=== PATIENT | male | born 1965 | race Caucasian/White ===

== ENCOUNTER 2016-09-28 16:54 | Emergency (ER) | payer SELFPAY ==
[~2016-09-28] VITALS: Ht 175.3 cm; Wt 78.2 kg
[~2016-09-28 16:54] MED LIST: AMOXICILLIN 50500 MG PO; BRILINTA90 MG PO; CLEOCIN HC150 MG/CAP PO; FLEXERIL 1010 MG/TAB PO; IBUPROFEN 200200 MG PO; INDOCIN50 MG PO; LORTAB 5/500 501 TAB PO; MOTRIN 800800 MG/TAB PO; NAPROSYN500 MG PO; NO HOME MEDICATIONS; NORCO 325 MG-51 TAB PO; NORVASC 5MG5 MG/TAB PO; PEN-VEE K500 MG PO; PERCOCET 325 MG1 TA2 PO; TYLENOL 325MG325 MG PO; TYLENOL W/COD1 UDTAB PO
[2016-09-28 17:09] VITALS: TEMP 98.5
[2016-09-28 17:41] LABS: BASO # 0.1 (0.0-0.2); BASO % 0.8 % (0.0-2.0); EOS # 0.1 (0.0-0.7); EOS % 0.5 % (0-4.0); GRAN % 74.1 % (42.2-75.2); HEMATOCRIT 45.6 % (42.0-52.0); HEMOGLOBIN 15.6 g/dl (13.5-18.0); LYMPH # 1.6 (1.2-3.4); LYMPH % 16.8 % (20.0-51.0); MEAN CELL VOLUME 98 fl (80.0-100.0); MEAN CORPUSCULAR HEMOGLOBIN 34 pg (27.0-31.0); MEAN CORPUSCULAR HGB CONC 34 g/dl (33.0-37.0); MEAN PLATELET VOLUME 8.7 fl (7.4-10.4); MONO # 0.7 (0.1-0.6); MONO % 7.6 % (1.7-9.3); PLATELET COUNT 274 K/mm3 (130-400); RED BLOOD COUNT 4.66 M/mm3 (4.20-5.60); REDCELL DISTRIBUTION WIDTH-CV 13.2 % (11.5-14.5); WHITE BLOOD COUNT 9.5 K/mm3 (4.8-10.8)
[2016-09-28 17:51] LABS: ADJUSTED CALCIUM 8.7 mg/dL (8.4-10.2); ALBUMIN 4.4 gm/dL (3.5-5.0); BILIRUBIN,TOTAL 0.8 mg/dL (0.0-1.0); CREATININE, serum 0.91 mg/dL (0.66-1.25); POTASSIUM 3.7 mmol/L (3.4-5.0); TOTAL PROTEIN 8.1 gm/dL (6.4-8.2)
[2016-09-29 00:10] VITALS: BP 145/98; PULSE 95
[2016-09-30] MEDS ORDERED: PRINIVIL20 MG PO (15:11)
== END 2016-09-29 00:10 | disposition home or self-care (01) ==
LOC: COL.ER 16:54
PROVIDERS: Emergency Medicine
DX: F10.120 Alcohol abuse with intoxication, uncomplicated (principal); Y90.8 Blood alcohol level of 240 mg/100 ml or more
CPT/HCPCS: J2765; J3411; J3475; J7030

== ENCOUNTER 2016-09-29 21:22 | Emergency (ER) | payer SELFPAY ==
[~2016-09-29] VITALS: Ht 175.3 cm; Wt 78.2 kg
[2016-09-29 21:39] VITALS: TEMP 97
[2016-09-29 21:46] LABS: BASO # 0.1 (0.0-0.2); BASO % 1.2 % (0.0-2.0); EOS # 0.1 (0.0-0.7); EOS % 0.9 % (0-4.0); GRAN # 4.1 (1.4-6.5); GRAN % 64.5 % (42.2-75.2); HEMATOCRIT 44.8 % (42.0-52.0); HEMOGLOBIN 15.4 g/dl (13.5-18.0); LYMPH # 1.6 (1.2-3.4); LYMPH % 24.3 % (20.0-51.0); MEAN CELL VOLUME 99 fl (80.0-100.0); MEAN CORPUSCULAR HEMOGLOBIN 34 pg (27.0-31.0); MEAN CORPUSCULAR HGB CONC 34 g/dl (33.0-37.0); MEAN PLATELET VOLUME 8.6 fl (7.4-10.4); MONO # 0.6 (0.1-0.6); MONO % 8.9 % (1.7-9.3); PLATELET COUNT 238 K/mm3 (130-400); RED BLOOD COUNT 4.53 M/mm3 (4.20-5.60); REDCELL DISTRIBUTION WIDTH-CV 13.1 % (11.5-14.5); WHITE BLOOD COUNT 6.4 K/mm3 (4.8-10.8)
[2016-09-29 21:56] LABS: ADJUSTED CALCIUM 8.7 mg/dL (8.4-10.2); ALANINE AMINOTRANSFERASE 25 U/L (21-72); ALBUMIN 4.4 gm/dL (3.5-5.0); ALKALINE PHOSPHATASE 95 U/L (50-136); ANION GAP 16 mmol/L (7-16); BILIRUBIN,TOTAL 0.6 mg/dL (0.0-1.0); BLOOD UREA NITROGEN 7 mg/dL (9-20); CARBON DIOXIDE 29 mmol/L (22-30); CHLORIDE 103 mmol/L (98-107); CREATININE, serum 0.98 mg/dL (0.66-1.25); GLUCOSE 95 mg/dL (74-106); POTASSIUM 4.2 mmol/L (3.4-5.0); SODIUM 147 mmol/L (137-145); TOTAL PROTEIN 7.8 gm/dL (6.4-8.2)
[2016-09-29 21:58] LABS: ACETAMINOPHEN < 10 ug/mL (10-30); SALICYLATE < 1.0 mg/dL
[2016-09-29 22:02] LABS: AMPHETAMINE URINE NEGATIVE; BARBITURATES URINE NEGATIVE; BENZODIAZEPINES URINE POSITIVE; BUPRENORPHINE URINE NEGATIVE; METHADONE URINE NEGATIVE; OPIATES URINE NEGATIVE; OXYCODONE URINE NEGATIVE; PHENCYCLIDINE URINE NEGATIVE; PROPOXYPHENE URINE NEGATIVE; THC CANNABINOIDS URINE NEGATIVE
[2016-09-30 00:34] LABS: TROPONIN-I < 0.012 ng/mL (0.000-0.034)
[2016-09-30 15:06] VITALS: BP 166/101; PULSE 80
[2016-09-30] MEDS ORDERED: PRINIVIL20 MG PO (15:11)
== END 2016-09-30 15:28 | disposition home or self-care (01) ==
LOC: COL.ER 21:22
PROVIDERS: Emergency Medicine
DX: R45.851 Suicidal ideations (principal); F10.120 Alcohol abuse with intoxication, uncomplicated; Y90.9 Presence of alcohol in blood, level not specified; F32.2 Major depressive disorder, single episode, severe without psychotic features; M10.072 Idiopathic gout, left ankle and foot; M10.071 Idiopathic gout, right ankle and foot; R07.9 Chest pain, unspecified
CPT/HCPCS: J1885

== ENCOUNTER 2023-11-26 15:40 | Emergency (ER) | payer BC ==
[~2023-11-26] VITALS: Ht 175.3 cm; Wt 82.3 kg
[~2023-11-26 15:40] MED LIST changes: +PRINIVIL20 MG PO
[2023-11-26 15:55] VITALS: TEMP 98.7
[2023-11-26] MEDS ORDERED: predniSONE 20 MG TAB PO ONE (16:30)
[2023-11-26] MEDS ORDERED: Gabapentin 300 MG CAP PO ONE (16:30)
[2023-11-26 17:10] LABS: BASO % 0.8 % (0.0-2.0); EOS # 0.2 K/mm3 (0.0-0.7); EOS % 3.1 % (0.0-4.0); GRAN # 3.2 K/mm3 (1.4-6.5); GRAN % 63.1 % (42.2-75.2); HEMATOCRIT 32.1 % (42.0-52.0); LYMPH # 1.3 K/mm3 (1.2-3.4); LYMPH % 25.7 % (20.0-51.0); MEAN CELL VOLUME 96 fl (80.0-100.0); MEAN CORPUSCULAR HEMOGLOBIN 33 pg (27-31); MEAN CORPUSCULAR HGB CONC 34 g/dl (33.0-37.0); MEAN PLATELET VOLUME 8.9 fl (7.4-10.4); MONO # 0.4 K/mm3 (0.1-0.6); MONO % 7.1 % (1.7-9.3); PLATELET COUNT 188 K/mm3 (130-400); RED BLOOD COUNT 3.35 M/mm3 (4.20-5.60); REDCELL DISTRIBUTION WIDTH-CV 15.3 % (11.5-14.5)
[2023-11-26 17:17] LABS: ERYTHROCYTE SEDIMENTATION RATE 7 mm/hr (0-30)
[2023-11-26 17:28] LABS: ALBUMIN 3.6 g/dL (3.4-4.8); BILIRUBIN,TOTAL 0.5 mg/dL (0.2-1.2); CALCIUM 8.5 mg/dL (8.4-10.2); CREATININE, serum 0.79 mg/dL (0.72-1.25); POTASSIUM 3.3 mEq/L (3.5-4.5); TOTAL PROTEIN 6.2 g/dl (6.2-8.1)
[2023-11-26 18:14] VITALS: BP 158/92; PULSE 80
[2023-11-27] MEDS ORDERED: PREDNISONE50 MG PO (10:08)
== END 2023-11-26 18:15 | disposition home or self-care (01) ==
LOC: COL.ER 15:40
PROVIDERS: Family Medicine
DX: G89.29 Other chronic pain (principal); M79.604 Pain in right leg; M79.605 Pain in left leg; M79.672 Pain in left foot; M79.671 Pain in right foot; Z87.39 Personal history of other diseases of the musculoskeletal system and connective tissue
CPT/HCPCS: J7512

== ENCOUNTER 2024-01-21 15:20 | Emergency (ER) | payer BC ==
[~2024-01-21] VITALS: Ht 175.3 cm; Wt 81.8 kg
[~2024-01-21 15:20] MED LIST changes: +PREDNISONE50 MG PO
[2024-01-21 15:24] VITALS: TEMP 97.7
[2024-01-21] MEDS ORDERED: NS 500 ML IV ONE (16:00)
[2024-01-21 16:11] LABS: BASO % 0.5 % (0.0-2.0); EOS # 0.1 K/mm3 (0.0-0.7); EOS % 0.9 % (0.0-4.0); GRAN # 5.8 K/mm3 (1.4-6.5); GRAN % 70.6 % (42.2-75.2); HEMOGLOBIN 11.9 g/dl (13.5-18.0); LYMPH # 1.7 K/mm3 (1.2-3.4); LYMPH % 21.2 % (20.0-51.0); MEAN CELL VOLUME 93 fl (80.0-100.0); MEAN CORPUSCULAR HEMOGLOBIN 32 pg (27-31); MEAN CORPUSCULAR HGB CONC 35 g/dl (33.0-37.0); MEAN PLATELET VOLUME 9.3 fl (7.4-10.4); MONO # 0.5 K/mm3 (0.1-0.6); MONO % 6.6 % (1.7-9.3); PLATELET COUNT 151 K/mm3 (130-400); RED BLOOD COUNT 3.73 M/mm3 (4.20-5.60)
[2024-01-21 16:13] LABS: HEMATOCRIT 34.5 % (42.0-52.0)
[2024-01-21 16:29] LABS: ALBUMIN 3.7 g/dL (3.4-4.8); BILIRUBIN,TOTAL 0.6 mg/dL (0.2-1.2); C-REACTIVE PROTEIN 0.13 mg/dL (0.00-0.50); CALCIUM 8.5 mg/dL (8.4-10.2); CREATININE, serum 0.84 mg/dL (0.72-1.25); TOTAL PROTEIN 5.9 g/dl (6.2-8.1)
[2024-01-21] MEDS ORDERED: Acetaminophen 500 MG TAB PO ONE (18:30)
[2024-01-21 18:54] VITALS: BP 138/90; PULSE 59
== END 2024-01-21 18:58 | disposition home or self-care (01) ==
LOC: COL.ER 15:20
PROVIDERS: Emergency Medicine
DX: R51.9 Headache, unspecified (principal); F17.210 Nicotine dependence, cigarettes, uncomplicated; F17.290 Nicotine dependence, other tobacco product, uncomplicated
CPT/HCPCS: J7040

== ENCOUNTER 2024-03-10 17:03 | Inpatient (IN) | payer MEDICARE ==
[~2024-03-10] VITALS: Ht 175.3 cm; Wt 83.5 kg
[2024-03-10] MEDS ORDERED: Pantoprazole 40 MG in NS 10 ML IV ONE (18:30)
[2024-03-10] MEDS ORDERED: Folic Acid 1 MG,Thiamine 200 MG in NS 1,000 ML IV ONE ×2 (18:30→20:45)
[2024-03-10 18:46] LABS: BASO # 0.1 K/mm3 (0.0-0.2); BASO % 0.8 % (0.0-2.0); EOS # 0.1 K/mm3 (0.0-0.7); EOS % 1.5 % (0.0-4.0); GRAN # 3.4 K/mm3 (1.4-6.5); GRAN % 56.1 % (42.2-75.2); HEMATOCRIT 41.7 % (42.0-52.0); HEMOGLOBIN 14.1 g/dl (13.5-18.0); LYMPH # 2.1 K/mm3 (1.2-3.4); LYMPH % 34.4 % (20.0-51.0); MEAN CELL VOLUME 95 fl (80.0-100.0); MEAN CORPUSCULAR HEMOGLOBIN 32 pg (27-31); MEAN CORPUSCULAR HGB CONC 34 g/dl (33.0-37.0); MEAN PLATELET VOLUME 8.5 fl (7.4-10.4); MONO # 0.4 K/mm3 (0.1-0.6); PLATELET COUNT 287 K/mm3 (130-400); RED BLOOD COUNT 4.37 M/mm3 (4.20-5.60); REDCELL DISTRIBUTION WIDTH-CV 14.3 % (11.5-14.5)
[2024-03-10 19:04] LABS: BILIRUBIN,TOTAL 0.2 mg/dL (0.2-1.2); CALCIUM 9.1 mg/dL (8.4-10.2); CREATININE, serum 1.06 mg/dL (0.72-1.25); POTASSIUM 3.8 mEq/L (3.5-4.5); TOTAL PROTEIN 7.5 g/dl (6.2-8.1)
[2024-03-10] MEDS ORDERED: LORazepam 2 MG/ML 1 ML VIAL IV PRN (20:45)
[2024-03-10] MEDS ORDERED: Ondansetron 4 MG/2 ML VIAL IV PRN (20:45)
[2024-03-10] MEDS ORDERED: Magnesium Sulfate 4% 50 ML IV ONE (20:45)
[2024-03-10] MEDS ORDERED: Mag/Al Hydrox/Simeth Susp 30 ML CUP PO PRN (20:45)
[2024-03-10] MEDS ORDERED: Acetaminophen 325 MG TAB PO PRN (20:45)
[2024-03-10] MEDS ORDERED: Atorvastatin 40 MG TAB PO SCH (21:25)
[2024-03-10] MEDS ORDERED: Gabapentin 300 MG CAP PO SCH (21:25)
[2024-03-10] MEDS ORDERED: LR 1,000 ML IV SCH (21:30)
[2024-03-10] MEDS ORDERED: Nicotine 21 MG DAILY PATCH TD SCH (21:45)
[2024-03-10 23:29] VITALS: BP 167/107; PULSE 74; TEMP 97.5
[2024-03-11] VITALS (156 sets, daily range): BP systolic 137–162; BP diastolic 70–96; PULSE 58–66; TEMP 97.8–98.4; O2SAT 89–98
[2024-03-11 00:45] LABS: COLLECTION METHOD CLEAN CATCH
[2024-03-11 00:56] LABS: URINE APPEARANCE CLEAR (CLEAR/HAZY); URINE BLOOD NEGATIVE (NEGATIVE); URINE COLOR YELLOW (YELLOW); URINE GLUCOSE NEGATIVE (NEGATIVE); URINE KETONE NEGATIVE (NEGATIVE); URINE NITRATE NEGATIVE (NEGATIVE); URINE PROTEIN(semi-quant) 1+ (NEGATIVE)
[2024-03-11 01:05] LABS: TRICYCLIC ANTIDEPRESS URINE NEGATIVE (NEGATIVE)
[2024-03-11] MEDS ORDERED: KEPPRA 500MG500 MG PO (01:48)
[2024-03-11] MEDS ORDERED: ZYLOPRIM 100MG100 MG PO (01:49)
[2024-03-11] MEDS ORDERED: LIPITOR 40MG TA40 MG PO (01:50)
[2024-03-11] MEDS ORDERED: CYMBALTA 60MG60 MG PO (01:51)
[2024-03-11] MEDS ORDERED: NEURONTIN300 MG/CAP PO (01:53)
[2024-03-11 04:10] LABS: BASO % 0.9 % (0.0-2.0); EOS # 0.1 K/mm3 (0.0-0.7); EOS % 2.9 % (0.0-4.0); GRAN # 2.1 K/mm3 (1.4-6.5); GRAN % 46.5 % (42.2-75.2); LYMPH # 1.8 K/mm3 (1.2-3.4); LYMPH % 39.1 % (20.0-51.0); MEAN CELL VOLUME 95 fl (80.0-100.0); MEAN CORPUSCULAR HGB CONC 34 g/dl (33.0-37.0); MEAN PLATELET VOLUME 8.7 fl (7.4-10.4); MONO # 0.5 K/mm3 (0.1-0.6); MONO % 10.4 % (1.7-9.3); PLATELET COUNT 190 K/mm3 (130-400); RED BLOOD COUNT 3.68 M/mm3 (4.20-5.60); REDCELL DISTRIBUTION WIDTH-CV 14.3 % (11.5-14.5)
[2024-03-11 04:27] LABS: HEMOGLOBIN 11.9 g/dl (13.5-18.0); MEAN CORPUSCULAR HEMOGLOBIN 32 pg (27-31)
[2024-03-11 04:41] LABS: ALBUMIN 3.1 g/dL (3.4-4.8); BILIRUBIN,TOTAL 0.4 mg/dL (0.2-1.2); CALCIUM 7.8 mg/dL (8.4-10.2); CREATININE, serum 0.8 mg/dL (0.72-1.25); MAGNESIUM 1.5 mg/dL (1.6-2.6); POTASSIUM 3.4 mEq/L (3.5-4.5); TOTAL PROTEIN 5.7 g/dl (6.2-8.1)
[2024-03-11 04:56] LABS: INR 1.1 (0.8-3.0); PROTHROMBIN TIME 12.1 SECONDS (9.7-12.8)
[2024-03-11] MEDS ORDERED: Potassium Bicarbonate/Citrate 20 MEQ Effervescent TAB PO SCH (07:30)
[2024-03-11] MEDS ORDERED: Multivitamin TAB PO SCH (08:00)
--- NOTE | 2024-03-11 08:05 | NUR ---
Patient awake and resting in bed; alert and oriented and cooperative with staff. Does report anxiety and visible tremors. Scored per CIWA protocol at this time. Call light within reach and bed alarm activated.
--- NOTE | 2024-03-11 08:50 | NUR ---
rollway worker met with pt to discuss discharge planning. He reports to live at the [facility]. He reports to have a PCP, but SW could not understand what he was saying. He reports to be still , but and was made aware his spouse would be NOK. He was agreeable to this and her being contacted if needed as he does not have a DPOA-HC. His spouse is Alexandra Larsen and he does not have the phone number off the top of his head. He reports his brother, Lc [phone] is another contact. He is independent with ADLS and uses no DME. He reports to obtain medications from [facility] with no difficulties. He confirmed his insurance as [employer] and that he is not working. SW confirms that he is still agreeable to discharge to the [facility] in [place], [place]. He confirms his Ebony counselor as Virginia Islas. No further needs. Discharge Plan: [facility] inpatient rehab
[2024-03-11] MEDS ORDERED: DULoxetine 60 MG CAP PO SCH (09:00)
[2024-03-11] MEDS ORDERED: Folic Acid 1 MG TAB PO SCH (09:00)
[2024-03-11] MEDS ORDERED: levETIRAcetam 500 MG TAB PO SCH (09:00)
[2024-03-11] MEDS ORDERED: Polyethylene Glycol 3350 17 GM PDS PO SCH (09:00)
[2024-03-11] MEDS ORDERED: Allopurinol 100 MG TAB PO SCH (09:00)
[2024-03-11] MEDS ORDERED: Magnesium Sulfate 2 GM/50 ML IV SOLN IV ONE (11:15)
[2024-03-11] MEDS ORDERED: hydrALAZINE 10 MG TAB PO PRN (15:00)
--- NOTE | 2024-03-11 21:54 | NUR ---
RESTING QUIETLY AT THIS TIME. HAS BEEN SCORING 7-9 ON CIWA SCALE. ONCE CLEARING HAS A BED AT [facility] IN [place]. PER REPORT PT HAS BEEN COOPERATIVE. NO SIGN OF DISTRESS AT THIS TIME.
--- NOTE | 2024-03-11 22:01 | NUR ---
PT C/O MILD NAUSEA. DECLINED MEDICATION. PT WAS ABLE TO STAND AT BEDSIDE TO VOID. HANDS WASHED. PT WEARS DENTURES.
[2024-03-12] VITALS (194 sets, daily range): BP systolic 122–182; BP diastolic 72–114; PULSE 67–71; TEMP 97.6–98.5; O2SAT 89–99
--- NOTE | 2024-03-12 07:23 | NUR ---
REMAINS STABLE ON ROUNDS. PT SLEEPING IN BETWEEN CIWA ASSESSMENTS. NO SIGN OF DISTRESS AT THIS TIME. CONTINUE PLAN OF CARE.
--- NOTE | 2024-03-12 08:00 | NUR ---
Patient drowsy, but alert and oriented. Continues to be cooperative with staff. WIll continue to monitor CIWA score. Call light left within reach.
[2024-03-12 08:04] LABS: CALCIUM 8.4 mg/dL (8.4-10.2); CREATININE, serum 0.85 mg/dL (0.72-1.25); POTASSIUM 3.9 mEq/L (3.5-4.5)
[2024-03-12 08:15] LABS: BASO % 0.6 % (0.0-2.0); EOS # 0.1 K/mm3 (0.0-0.7); EOS % 1.8 % (0.0-4.0); GRAN # 3.5 K/mm3 (1.4-6.5); GRAN % 69.6 % (42.2-75.2); HEMOGLOBIN 11.8 g/dl (13.5-18.0); LYMPH % 20.3 % (20.0-51.0); MEAN CELL VOLUME 95 fl (80.0-100.0); MEAN CORPUSCULAR HEMOGLOBIN 33 pg (27-31); MEAN CORPUSCULAR HGB CONC 34 g/dl (33.0-37.0); MEAN PLATELET VOLUME 9.1 fl (7.4-10.4); MONO # 0.4 K/mm3 (0.1-0.6); MONO % 7.5 % (1.7-9.3); PLATELET COUNT 181 K/mm3 (130-400); RED BLOOD COUNT 3.61 M/mm3 (4.20-5.60)
[2024-03-12 08:16] LABS: HEMATOCRIT 34.4 % (42.0-52.0)
--- NOTE | 2024-03-12 10:14 | NUR ---
Initial visit; Patient awake and though looking and acting as if he felt very ill, listened to Accredited Legal Secretary as she spoke with him about his illness. Accredited Legal Secretary inquired as to whether he had thought about getting help and prays that he will get the help he needs to heal his body, mind and spirit before his body succombs to his illness. Accredited Legal Secretary let him know Accredited Legal Secretary is available to help. The pain Accredited Legal Secretary witnessed in his eyes and his movement indicated that he was saying "yes" that he knew he needed help.
[2024-03-12] MEDS ORDERED: Magnesium Oxide 400 MG TAB PO SCH (10:26)
[2024-03-12] MEDS ORDERED: Magnesium Sulfate 8% 50 ML IV ONE (10:30)
--- NOTE | 2024-03-12 15:28 | NUR ---
HOME MEDICATIONS IN BACKPACK WERE SENT DOWN TO PHARMACY. PATIENT AWARE.
--- NOTE | 2024-03-12 16:40 | NUR ---
Patient transfered up to medical floor via wheelchair. Requires 1-2 assist with transfers. Tolerated transfer well. Met receiving RN in room. Call light left within reach and bed alarm activated.
--- NOTE | 2024-03-12 18:49 | NUR ---
Patient arrived to room 310 at approximately 1730 from ICU- with ETOH withdrawl. Pt a/o x4. x2 assist to bed- gait very wak and unsteady. Seizure precautions in place. Ativan administered by VÍCTOR Retana upon arrival to room. Pt has been resting in bed since but easily arousable.
--- NOTE | 2024-03-12 19:20 | NUR ---
PATIENT RESTING IN BED WITH EYES CLOSED WITH TV OFF WITH NO FAMILY PRESENT WITH NO ACUTE DISTRESS NOTED. PATIENT ON ROOM AIR. INT TO RIGHT FOREARM INTACT WITH NO COMPLICATIONS NOTED. BEDSIDE SHIFT COMPLETED WITH BHAVESH AT THIS TIME. PATIENT REQUESTED HELP TO USE THE BATHROOM. PATIENT ASSISTED TO USE THE URINAL AND VOIDED 425 ML OF CLEAR YELLOW URINE. PATIENT ASSISTED BACK TO BED AND HELPED TO REPOSITION FOR COMFORT. PATIENT DENIES ANY OTHER NEEDS. BED IN LOW POSITION WITH WHEELS LOCKED WITH RAILS UP X3 AND CALL LIGHT WITHIN REACH. SEIZURE PRECAUTIONS IN PLACE. BED ALARM ON.
--- NOTE | 2024-03-12 23:28 | NUR ---
HOSPITALIST JAMAL KHAN CALLED FOR PATIENT'S BLOOD PRESSURE OF 179/114. ORDER RECIEVED FOR IV APRESOLINE.
[2024-03-12] MEDS ORDERED: hydrALAZINE 20 MG/ML 1 ML VIAL IV PRN (23:30)
[2024-03-13] VITALS (9 sets, daily range): BP systolic 128–151; BP diastolic 61–99; PULSE 63–80; TEMP 97.3–98.4
--- NOTE | 2024-03-13 07:30 | NUR ---
Patient awake in bed asking for a cigarette. Nurse informed the patient that he cannot leave to smoke and that he has a nicotine patch. Patient alert, but slightly confused. VSS. IV CDI. Denies pain and discomfort. ETOH and seizure precautions in place. Call light within reach. Bed alarm on
[2024-03-13] MEDS ORDERED: Lisinopril 10 MG TAB PO SCH (09:00)
[2024-03-13] MEDS ORDERED: Thiamine 100 MG TAB PO SCH (09:00)
[2024-03-13] MEDS ORDERED: Nicotine 21 MG DAILY PATCH TD SCH (09:20)
--- NOTE | 2024-03-13 16:33 | NUR ---
Campus Recruiting Intern met with patient and his [place] Interlibrary Loan Specialist, Virginia (ph#[phone]) to discuss discharge planning. Virginia stated she believes patient has a bed at [facility] and that this hospital's admissions team was supposed to send a medical clearance to [facility]. JOEL Phillips contacted [facility] and they stated they did not have a referral on patient and no bed available until the end of the month. JOEL was contacted by patient's evp and chief operating officer, Segun Rodriguez (ph#[phone]) who stated he will assist in finding placement for patient as he already has been working on this. Segun advised part of the issue is that patient has Medicaid of [place] and has not been switched to [place] Medicaid. JOEL consulted Ap Financial Counselor for assist. JOEL advised Segun that referrals would be sent, but that if patient is medically cleared before an acceptance if found, there is a chance he could be discharged home. JOEL faxed referrals to [facility], [facility], [facility], [facility], and [facility].
--- NOTE | 2024-03-13 18:06 | NUR ---
Patient getting up out of bed stating that he is leaving. VÍCTOR Santoyo informed this nurse, Yarelis removed IV tip intact, gauze and coban applied. This nurse had the patient sign AMA paperwork. supervisor cabinetmaker VÍCTOR Carter notified. Attempted to call SERGIO Quintanilla and security notified. Pharmacy brought up the pts home medications. Patient getting dressed.
--- NOTE | 2024-03-13 18:30 | NUR ---
Patient ambulated independently with security with personal belongings. No further needs expressed
== END 2024-03-13 18:28 | disposition left against medical advice (07) | DRG 894 ==
LOC: COL.ER 17:03 → ICU 20:33 → MEDICAL 20:39 → ICU 20:39 → MEDICAL 03-12 17:30
PROVIDERS: Internal Medicine; Physician Assistant; ADMIT Internal Medicine
DX: F10.239 Alcohol dependence with withdrawal, unspecified (principal); I10 Essential (primary) hypertension; M10.9 Gout, unspecified; G62.9 Polyneuropathy, unspecified; F17.210 Nicotine dependence, cigarettes, uncomplicated; Y90.8 Blood alcohol level of 240 mg/100 ml or more; G40.909 Epilepsy, unspecified, not intractable, without status epilepticus; E83.42 Hypomagnesemia; F10.229 Alcohol dependence with intoxication, unspecified; Z53.29 Procedure and treatment not carried out because of patient's decision for other reasons; F32.A Depression, unspecified; E78.5 Hyperlipidemia, unspecified; Z79.899 Other long term (current) drug therapy; Z88.5 Allergy status to narcotic agent; Z88.0 Allergy status to penicillin
CPT/HCPCS: J0360; J1650; J2060; J2405; J2470; J3411; J3475; J7030; J7120